=== PATIENT | male | born 1990 | race Two or more races ===

== ENCOUNTER 2019-11-13 08:32 | Day surgery (SDC) | payer OTHER ==
[2019-11-13] VITALS (12 sets, daily range): BP systolic 109–135; BP diastolic 67–88
[~2019-11-13] VITALS: Ht 185.4 cm; Wt 70.3 kg
--- NOTE | 2019-11-13 07:46 | Operative Note - PDOC ---
Operative Note Operative Note Pre-op Diagnosis: sp briding internal fixation Procedure: seee op report Post-op Diagnosis: same as pre-op plus Operative Findings: consistent w/pre-op dx studies Anesthesia: MAC Specimen: none Complications: none Condition: stable Estimated Blood Loss: none Implant(s) used?: No Domingo Agarwal MD Nov 13, 2019 07:46
--- NOTE | 2019-11-13 07:46 | Pre-Procedure Note/Attestation ---
Pre-Procedure Note/Attestation Complete Prior to Procedure Planned Procedure: left Procedure Narrative: wrist removal of hardware Indications for Procedure Pre-Operative Diagnosis: sp briding internal fixation Attestation I attest that I discussed the nature of the procedure; its benefits; risks and complications; and alternatives (and the risks and benefits of such alternatives ), prior to the procedure, with the patient (or the patient's legal medical office representative). I attest that, if there was a reasonable possibility of needing a blood transfusion, the patient (or the patient's legal medical office representative) was given the [facility] standardized written summary, pursuant to the Douglas Aspers Blood Safety Act ([place] Health and Safety Code # 1645, as amended). I attest that I re-evaluated the patient just prior to the surgery and that there has been no change in the patient's H&P, except as documented below: Domingo Agarwal MD Nov 13, 2019 07:46
[~2019-11-13 08:32] MED LIST: D5 1/2NS 1,000 ML IV SCH; HYDROcodone/Acetamin 5/325 tab ORAL PRN; HYDROmorphone 1mg/ml Carpuject SUBQ PRN; Tylenol #3 tab (300mg/30mg) ORAL PRN; XARELTO10 MG ORAL; ceFAZolin 1gm IVPB IVPB ONE; celeBREX 200mg Cap **SURGERY PATIENTS ONLY ORAL ONE
[2019-11-13] MEDS ORDERED: Sterile Water Irrig 1000ml IRRIG ONE (08:33)
[2019-11-13] MEDS ORDERED: Propofol 200mg/20ml IV ONE ×2 (08:33→10:13)
[2019-11-13] MEDS ORDERED: LR 1000ml ONE (08:33)
[2019-11-13] MEDS ORDERED: NS Irrig 1000ml ONE (08:33)
[2019-11-13] MEDS ORDERED: celeBREX 200mg Cap **SURGERY PATIENTS ONLY ORAL ONE (08:57)
[2019-11-13] MEDS ORDERED: oxyCONTIN 20mg tab ORAL ONE (08:57)
[2019-11-13] MEDS ORDERED: LR 1000ml 1,000 ML IVLG SCH (09:38)
--- NOTE | 2019-11-13 09:41 | Anethesia Preoperative Eval ---
Anesthesia Pre-op PMH/ROS General Date of Evaluation: Nov 13, 2019 Time of Evaluation: 08:44 Anesthesiologist: Ani ASA Score: ASA 2 Mallampati Score Class I : Soft palate, uvula, fauces, pillars visible Class II: Soft palate, uvula, fauces visible Class III: Soft palate, base of uvula visible Class IV: Only hard plate visible Mallampati Classification: Class I Surgeon: Stefano Diagnosis: L Wrist Painful Hardware Surgical Procedure: Remove L Wrist Painful Hardware Anesthesia History: none Family History: no anesthesia problems Allergies: Coded Allergies: CODEINE (Verified Allergy, Unknown, 11/11/19) Medications: see eMAR Patient NPO?: Yes Past Medical History Pulmonary: Reports: other - HX DVT/PE PSxH Narrative: L Wrist SX Anesthesia Pre-op Phys. Exam Physician Exam Last Vital Signs Date Time Temp Pulse Resp B/P (MAP) Pulse Ox O2 Delivery O2 Flow Rate FiO2 11/13/19 09:08 97.5 67 18 119/67 99 Room Air Constitutional: NAD Neurologic: CN 2-12 intact Cardiovascular: RRR Respiratory: CTA Gastrointestinal: S/NT/ND Airway Exam Mallampati Score: Class I MO: full ROM: full Teeth: intact Anesthesia Pre-op A/P Risk Assessment & Plan Assessment: ASA 1 Plan: GA, SED Status Change Before Surgery: No Pre-Antibiotics Dru Gram Ancef IV Given Within 1 Hr of Incision: Yes Time Given: 09:02 Willie Law MD Nov 13, 2019 09:41
--- NOTE | 2019-11-13 09:43 | Immediate Post-Op Evaluation ---
Immediate Post-Op Evalulation Immediate Post-Op Evalulation Procedure: Remove L Wrist Painful Hardware Date of Evaluation: Nov 13, 2019 Time of Evaluation: 10:14 IV Fluids: 1000 LR Blood Products: 0 Estimated Blood Loss: 10 Urinary Output: 0 Blood Pressure Systolic: 139 Blood Pressure Diastolic: 81 Pulse Rate: 87 Respiratory Rate: 16 O2 Sat by Pulse Oximetry: 100 Temperature (Fahrenheit): 97.6 Pain Score (1-10): 2 Nausea: No Vomiting: No Complications 0 Patient Status: awake, reacts, patent, none Hydration Status: adequate Dru Gram Ancef IV Given Within 1 Hr of Incision: Yes Time Given: 09:01 Willie Law MD Nov 13, 2019 09:43
--- NOTE | 2019-11-13 09:44 | 48 Hour Post Anesthesia Eval ---
Post Anesthesia Evaluation Procedure: Remove L Wrist Painful Hardware Date of Evaluation: Nov 13, 2019 Time of Evaluation: 12:23 Blood Pressure Systolic: 132 0: 78 Pulse Rate: 79 Respiratory Rate: 18 Temperature (Fahrenheit): 98 O2 Sat by Pulse Oximetry: 99 Airway: patent Nausea: No Vomiting: No Pain Intensity: 2 Hydration Status: adequate Cardiopulmonary Status: Stable Mental Status/LOC: patient returned to baseline Follow-up Care/Observations: 0 Post-Anesthesia Complications: 0 Follow-up care needed: ready to discharge Willie Law MD Nov 13, 2019 09:44
[2019-11-13] MEDS ORDERED: Acetaminophen (Non formulary) 100 ML IV ONE (09:45)
[2019-11-13] MEDS ORDERED: fentaNYL 100 mcg/2 mL IV PRN (09:45)
[2019-11-13] MEDS ORDERED: Midazolam 2mg/2ml Inj IVP PRN (09:45)
[2019-11-13] MEDS ORDERED: DiphenhydrAMINE 50mg/ml Inj IVP PRN (09:45)
[2019-11-13] MEDS ORDERED: Meperidine 25mg/0.5ml Inj (FOR RIGORS ONLY) IV PRN (09:45)
[2019-11-13] MEDS ORDERED: LORazepam Inj 2mg/ml 1ml IV PRN (09:45)
[2019-11-13] MEDS ORDERED: Metoclopramide 10mg/2ml Inj IVP PRN (09:45)
[2019-11-13] MEDS ORDERED: Ketorolac 30mg Inj IV PRN ×2 (09:45)
[2019-11-13] MEDS ORDERED: Labetalol 5mg/ml 20ml vial IV PRN (09:45)
[2019-11-13] MEDS ORDERED: Atropine Sulfate 0.4mg/ml inj IVP PRN (09:45)
[2019-11-13] MEDS ORDERED: Lidocaine 1% MPF 10mg/ml 5ml ONE (10:13)
[2019-11-13] MEDS ORDERED: Dexamethasone 4mg/ml vial ONE (10:13)
[2019-11-13] MEDS ORDERED: Ketorolac 30mg Inj ONE (10:15)
[2019-11-13] MEDS ORDERED: Kenalog-40 1ml Vial ONE (10:16)
[2019-11-13] MEDS ORDERED: Bupivacaine 0.5% Inj 30 ml vial INJ ONE (10:16)
[2019-11-13] MEDS ORDERED: Duramorph PF 5mg/10ml amp ONE (10:16)
--- NOTE | 2019-11-13 10:37 | Immediate Post-Op Evaluation ---
Immediate Post-Op Evalulation Immediate Post-Op Evalulation Procedure: Remove L Wrist Painful Hardware Date of Evaluation: Nov 13, 2019 Time of Evaluation: 11:33 IV Fluids: 900 LR Blood Products: 0 Estimated Blood Loss: 10 Urinary Output: 0 Blood Pressure Systolic: 115 Blood Pressure Diastolic: 74 Pulse Rate: 77 Respiratory Rate: 16 O2 Sat by Pulse Oximetry: 100 Temperature (Fahrenheit): 97.6 Pain Score (1-10): 2 Nausea: No Vomiting: No Complications 0 Patient Status: awake, reacts, patent, none Hydration Status: adequate Dru Gram Ancef IV Given Within 1 Hr of Incision: Yes Time Given: 10:26 Willie Law MD Nov 13, 2019 10:37
--- NOTE | 2019-11-13 10:38 | 48 Hour Post Anesthesia Eval ---
Post Anesthesia Evaluation Procedure: Remove L Wrist Painful Hardware Date of Evaluation: Nov 13, 2019 Time of Evaluation: 13:46 Blood Pressure Systolic: 108 0: 64 Pulse Rate: 63 Respiratory Rate: 18 Temperature (Fahrenheit): 98 O2 Sat by Pulse Oximetry: 100 Airway: patent Nausea: No Vomiting: No Pain Intensity: 2 Hydration Status: adequate Cardiopulmonary Status: Stable Mental Status/LOC: patient returned to baseline Follow-up Care/Observations: 0 Post-Anesthesia Complications: 0 Follow-up care needed: ready to discharge Willie Law MD Nov 13, 2019 10:38
[2019-11-13] MEDS ORDERED: fentaNYL 100 mcg/2 mL IV ONE (10:44)
--- NOTE | 2019-11-13 20:45 | Operative Note - Dictated ---
DATE OF OPERATION: 11/13/2019 PREOPERATIVE DIAGNOSES: 1. Status post internal bridging fixation of left wrist for comminuted distal radius intercarpal fracture. 2. Painful left wrist hardware. POSTOPERATIVE DIAGNOSES: 1. Status post internal bridging fixation of left wrist for comminuted distal radius intercarpal fracture. 2. Painful left wrist hardware. PROCEDURE: 1. Removal of left wrist hardware including plate and six screws. 2. Manipulation under anesthesia, left radiocarpal joint. SURGEON: Domingo Agarwal MD. ANESTHESIA: MAC. INDICATION FOR PROCEDURE: The patient is a pleasant gentleman, who had a significant injury. He underwent an internal bridging fixation of the left wrist. It has been approximately 10 weeks since and elected to undergo removal of the internal bridging fixation to allow range of motion. Risks, limitations, expectations, and complication of procedure were discussed in detail including risk of anesthesia, medical complications, DVT, PE, and mortality risks. All questions addressed particularly in light of the fact that he has PE history. DESCRIPTION OF PROCEDURE: After informed consent was obtained, the patient was brought to the operating room. The patient was placed under monitored anesthesia control. Left arm was prepped and draped in a sterile manner. Time-out was performed. Ancef was administered. The previous skin incisions were marked out. The skin proximally was incised. Dorsal exposure using the intermuscular plane was performed and the proximal three screws were removed. The distal skin incision was then marked out and the skin was incised. The plate which was relatively superficial was identified. Three screws were removed. At this point, the plate was then removed. The skin was closed using 3-0 Vicryl and 3-0 Monocryl sutures. Once this was done, gentle manipulation under anesthesia was performed while the patient was under anesthesia and wrist flexed to 45 to 60 degrees with extension of 45. Once this was completed, the patient was awoken and taken to recovery room with stable vital signs. ESTIMATED BLOOD LOSS: None. COMPLICATIONS: None. SPECIMENS: None. IMPLANTS: None. Domingo Agarwal M.D. DR: Rosie JOB#: [id number] CC:
== END 2019-11-13 13:15 | disposition home or self-care (01) ==
LOC: SUR 08:32
DX: T85.848A Pain due to other internal prosthetic devices, implants and grafts, initial encounter (principal); Z88.6 Allergy status to analgesic agent; X58.XXXA Exposure to other specified factors, initial encounter; Y92.9 Unspecified place or not applicable; Z86.718 Personal history of other venous thrombosis and embolism; Z86.711 Personal history of pulmonary embolism
CPT/HCPCS: 20680; 25259; J0131; J0690; J1100; J2250; J2405; J2704; J3010; J3490; 94003; 94150